=== PATIENT | male | born 1950 | race Caucasian/White ===

== ENCOUNTER → 2023-08-03 | Outpatient (CLI) | payer MEDICARE ==
[2023-08-03 23:14] LABS: BUN/Creat Ratio 20.64 Ratio (12.00-20.00); Blood Urea Nitrogen 22.7 mg/dL (9.0-27.0); Calcium 8.8 mg/dL (8.7-10.3); Carbon Dioxide 21.3 mmol/L (21.6-31.8); Chloride 109 mmol/L (96-109); Glucose 124 mg/dL (70-110); Potassium 4.9 mmol/L (3.5-5.5); Sodium 140 mmol/L (135-145)
== END | disposition home or self-care (01) ==
LOC: LABWHC1 10:03
PROVIDERS: ATTEND Family Medicine
DX: N17.9 Acute kidney failure, unspecified (principal); D64.9 Anemia, unspecified
CPT/HCPCS: 36415; 80048

== ENCOUNTER 2023-10-28 09:47 | Day surgery (SDC) | payer MEDICARE ==
[~2023-10-28 09:47] MED LIST: LACTATED RINGERS 1,000 ML IV SCH
[2023-10-28] MEDS: LACTATED RINGERS 1,000 ML IV ONE (10:32)
[2023-10-28 10:45] VITALS: TEMP 98.6
[2023-10-28] MEDS ORDERED: LIDOCAINE 1% INJ 10MG/ML (20 ML MDV) ONE (12:05)
[2023-10-28] MEDS ORDERED: PROPOFOL 10 MG/ML 20 ML VIAL IV ONE (12:05)
[2023-10-28] MEDS ORDERED: fentaNYL (PF) 50 MCG/ML 2 ML AMP ONE (12:05)
--- NOTE | 2023-10-28 12:08 | P.GSHP ---
History of Present Illness H&P Date: 10/28/23 Chief Complaint: Anemia Is a 73-year-old male who presents today for EGD and screening colonoscopy. Patient's history of anemia. Past Medical History Past Medical History: Atrial Fibrillation, Heart Failure, GERD/Reflux, Hyperlipidemia, Hypertension, Skin Disorder, Vascular Disorder Additional Past Medical History / Comment(s): IRON DEFICIENCY ANEMIA. recent blood transfusion & iron infusion end of September, PERIPHERAL VASCULAR DISEASE. lower back pain, edema lower legs, small area near right ankle-using silver sulfate on it per pt.-juan Shearer-goes to Wound center, legs wrapped daily History of Any Multi-Drug Resistant Organisms: None Reported Additional Past Surgical History / Comment(s): BILATERAL CATARACT SURGERY. 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 right leg angioplasty/stent Past Anesthesia/Blood Transfusion Reactions: No Reported Reaction Smoking Status: Former smoker Medications and Allergies Home Medications Medication Instructions Recorded Confirmed Type Ascorbic Acid [Vitamin C] 1,000 mg PO DAILY 10/08/23 10/28/23 History Aspirin EC [Ecotrin Low Dose] 81 mg PO DAILY 10/08/23 10/28/23 History Atorvastatin Calcium [Lipitor] 40 mg PO DAILY 10/08/23 10/28/23 History Calcium Carbonate/Vitamin D3 1 tab PO DAILY 10/08/23 10/28/23 History [Oyster Shell 250-Vit D3 3.125 Mcg (125 Iu)] Ferrous Sulfate [Iron] 325 mg PO BID 10/08/23 10/28/23 History Furosemide [Lasix] 40 mg PO BID 10/08/23 10/28/23 History Gabapentin [Neurontin] 100 mg PO TID 10/08/23 10/28/23 History HYDROcodone/APAP 7.5-325MG [[place] 1 tab PO Q6H PRN 10/08/23 10/28/23 History 7.5-325] Magnesium Carb,Citrate,Oxide 300 mg PO DAILY 10/08/23 10/28/23 History [Magnesium Complex] Metoprolol Tartrate 125 mg PO BID 10/08/23 10/28/23 History Multivit/Iron Sulf/Folic Acid 1 tab PO DAILY 10/08/23 10/28/23 History [Multivitamin with Iron] Pantoprazole [Protonix] 40 mg PO DAILY 10/08/23 10/28/23 History Sertraline [Zoloft] 25 mg PO DAILY 10/08/23 10/28/23 History Docusate [Colace] 100 mg PO DAILY 10/24/23 10/28/23 History Allergies Allergy/AdvReac Type Severity Reaction Status Date / Time No Known Allergies Allergy Verified 10/28/23 10:36 Surgical - Exam Vital Signs Temp Pulse Resp BP Pulse Ox 98.6 F 78 16 115/68 95 10/28/23 10:39 10/28/23 10:39 10/28/23 10:39 10/28/23 10:39 10/28/23 10:39 - General well developed, well nourished - Eyes PERRL - ENT normal pinna - Neck no masses - Respiratory normal expansion - Cardiovascular Rhythm: regular - Abdomen Abdomen: soft, non tender Assessment and Plan Assessment: Anemia. Will perform EGD screening colonoscopy.
--- NOTE | 2023-10-28 12:33 | P.OP ---
Description of Procedure: Patient was placed on the endoscopy table in the lateral position. The gastroscope was placed in the patient's oropharynx and passed into the esophagus and the stomach. The scope was then placed through the pylorus. The first and second portion of the duodenum appeared normal. Scope was then repacked the antrum this appeared mildly inflamed. The scope was then retroflexed and the Mainer of the stomach appeared normal. The GE junction was at 40 cm. The distal esophagus appeared normal. The proximal esophagus appeared normal. Scope withdrawn the patient. Next digital rectal exam was performed this revealed no abnormalities. The flexible colonoscope was then placed patient anus and passed throughout the colon. Scope could not be placed in the cecum secondary to poor prep. There is a large amount of solid stool in the mid right colon. The scope was withdrawn. The visualized right colon and transverse colon appeared normal. In the descending and sigmoid colon there is mild diverticular changes. The scope was then brought back to the rectum and this appeared normal. Scope was then withdrawn from the patient.
[2023-10-28 13:15] VITALS: BP 149/80; PULSE 88; RESP 16
== END 2023-10-28 13:24 | disposition home or self-care (01) ==
LOC: ORWHC2ENDO 09:47
PROVIDERS: ATTEND Surgery
DX: D50.9 Iron deficiency anemia, unspecified (principal); I11.0 Hypertensive heart disease with heart failure; I50.9 Heart failure, unspecified; I48.91 Unspecified atrial fibrillation; E78.5 Hyperlipidemia, unspecified; K21.9 Gastro-esophageal reflux disease without esophagitis; Z87.891 Personal history of nicotine dependence; Z79.899 Other long term (current) drug therapy
CPT/HCPCS: 88305; 45378; 43239; J2001; J3010; J2704

== ENCOUNTER → 2023-11-26 | Outpatient (CLI) | payer MEDICARE ==
--- NOTE | 2023-11-27 10:17 | CT ---
EXAMINATION TYPE: CT thoracic spine wo con CT DLP: 1090.8 mGycm, Automated exposure control for dose reduction was used. DATE OF EXAM: 11/26/2023 10:31 AM COMPARISON: None. CLINICAL INDICATION:Male, 73 years old with history of M54.6 thoracic pain; PHH, chronic back pain TECHNIQUE: Axial images of the thoracic spine were obtained without contrast. Coronal and sagittal re formats were performed. 3-D reformats of the bones were created on a separate workstation and submitt ed for review. CT DLP: 1090.8 mGycm, Automated exposure control for dose reduction was used. Contrast used: mL of , none Oral contrast used: none FINDINGS: There is erosion of two adjacent vertebral bodies, approximately T9 and T10 endplates. Marked loss of body height at the body designated T9 and mild loss of body height at T10 the process is predominantly lytic Discitis with spondylitis is of concern. If there is a history of cancer, metastasis might also be c onsidered. I do not see any evidence of extradural defects nor significant spinal canal narrowing at any thoraci c vertebral body level. IMPRESSION: Approximately T9-T10: Discitis with spondylitis is of concern. If there is a history of cancer, met astasis might also be considered.
== END | disposition home or self-care (01) ==
LOC: RADCTMAIN 09:38
PROVIDERS: ATTEND Family Medicine
DX: M46.44 Discitis, unspecified, thoracic region (principal)
CPT/HCPCS: 72128

== ENCOUNTER 2023-12-01 09:52 | Inpatient (IN) | payer MEDICARE ==
[2023-12-01] MEDS ORDERED: VANCOMYCIN IV PER PHARMACY 1 EACH MISC MISCELLANE PRN (10:09)
--- NOTE | 2023-12-01 10:13 | ED ---
Back Pain HPI - General Chief Complaint: Back Pain/Injury Stated Complaint: Back Pain Time Seen by Provider: 12/01/23 09:55 Source: patient, EMS, RN notes reviewed Mode of arrival: EMS Limitations: physical limitation - History of Present Illness Initial Comments: This is a 73-year-old male who presents to the emergency department for back pain. States that this is in the mid to lower back. Pain has been present over the last couple of months, but is getting substantially worse over the last few days. He is on [place] 10 mg without relief in symptoms. Denies any fevers/chills. Denies any injuries or loss of bowel/bladder control. He had an outpatient CT scan done 4 days ago, but has not yet gotten the results. MD Complaint: back pain - Related Data Home Medications Medication Instructions Recorded Confirmed Ascorbic Acid [Vitamin C] 1,000 mg PO DAILY 10/08/23 10/28/23 Aspirin EC [Ecotrin Low Dose] 81 mg PO DAILY 10/08/23 10/28/23 Atorvastatin Calcium [Lipitor] 40 mg PO DAILY 10/08/23 10/28/23 Calcium Carbonate/Vitamin D3 1 tab PO DAILY 10/08/23 10/28/23 [Oyster Shell 250-Vit D3 3.125 Mcg (125 Iu)] Ferrous Sulfate [Iron] 325 mg PO BID 10/08/23 10/28/23 Furosemide [Lasix] 40 mg PO BID 10/08/23 10/28/23 Gabapentin [Neurontin] 100 mg PO TID 10/08/23 10/28/23 HYDROcodone/APAP 7.5-325MG [[place] 1 tab PO Q6H PRN 10/08/23 10/28/23 7.5-325] Magnesium Carb,Citrate,Oxide 300 mg PO DAILY 10/08/23 10/28/23 [Magnesium Complex] Metoprolol Tartrate 125 mg PO BID 10/08/23 10/28/23 Multivit/Iron Sulf/Folic Acid 1 tab PO DAILY 10/08/23 10/28/23 [Multivitamin with Iron] Pantoprazole [Protonix] 40 mg PO DAILY 10/08/23 10/28/23 Sertraline [Zoloft] 25 mg PO DAILY 10/08/23 10/28/23 Docusate [Colace] 100 mg PO DAILY 10/24/23 10/28/23 Allergies Allergy/AdvReac Type Severity Reaction Status Date / Time No Known Allergies Allergy Verified 12/01/23 10:09 Review of Systems ROS Statement: Those systems with pertinent positive or pertinent negative responses have been documented in the HPI. ROS Other: All systems not noted in ROS Statement are negative. Past Medical History Past Medical History: Atrial Fibrillation, Heart Failure, GERD/Reflux, Hyperlipidemia, Hypertension, Skin Disorder, Vascular Disorder Additional Past Medical History / Comment(s): IRON DEFICIENCY ANEMIA. recent blood transfusion & iron infusion end september, PERIPHERAL VASCULAR DISEASE. lower back pain, edema lower legs, small area near right ankle-using silver sulfate on it per pt.-sees Manfred-goes to Wound center, legs wrapped daily History of Any Multi-Drug Resistant Organisms: MRSA MDRO Source:: possible MRSA, patient unsure Additional Past Surgical History / Comment(s): BILATERAL CATARACT SURGERY. 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 right leg angioplasty/stent Past Anesthesia/Blood Transfusion Reactions: No Reported Reaction Past Psychological History: No Psychological Hx Reported Smoking Status: Former smoker Past Alcohol Use History: Daily Past Drug Use History: Marijuana General Exam Limitations: physical limitation General appearance: alert, in distress Head exam: Present: atraumatic, normocephalic, normal inspection Respiratory exam: Present: normal lung sounds bilaterally. Absent: respiratory distress, wheezes, rales, rhonchi, stridor Cardiovascular Exam: Present: tachycardia, irregular rhythm GI/Abdominal exam: Present: soft, normal bowel sounds. Absent: distended, tenderness, guarding, rebound, rigid Back exam: Present: tenderness (Lower thoracic/upper lumbar spine) Neurological exam: Present: alert, oriented X3, CN II-XII intact Psychiatric exam: Present: normal affect, normal mood Skin exam: Present: warm, dry, intact, normal color. Absent: rash Course Vital Signs 12/01/23 12/01/23 12/01/23 09:53 11:01 12:31 Temperature 98.3 F Pulse Rate 114 H 130 H 118 H Pulse Rate [ Pulse Oximetery ] Respiratory 20 20 20 Rate Blood Pressure 149/86 136/74 Blood Pressure [Left Arm] O2 Sat by Pulse 93 L 95 95 Oximetry 12/01/23 12/01/23 12/01/23 14:12 14:17 14:59 Temperature Pulse Rate 114 H 106 H 97 Pulse Rate [ Pulse Oximetery ] Respiratory 18 20 Rate Blood Pressure 111/80 137/88 Blood Pressure [Left Arm] O2 Sat by Pulse 94 L 96 Oximetry 12/01/23 12/01/23 15:45 16:15 Temperature 98.3 F 97.8 F Pulse Rate 97 Pulse Rate [ 107 H Pulse Oximetery ] Respiratory 18 17 Rate Blood Pressure 126/77 Blood Pressure 159/80 [Left Arm] O2 Sat by Pulse 94 L 94 L Oximetry Medical Decision Making - Medical Decision Making This is a 73-year-old male who presents to the emergency department for back pain. Was pt. sent in by a medical professional or institution? @ -No Did you speak to anyone other than the patient for history? @ -No Did you review nursing and triage notes? @ -Yes, and I agree, it is accurate with regards to the patient's symptoms. Were old charts reviewed? @ -CT scan of the thoracic spine from 11/27/23 demonstrating erosion of 2 adjacent vertebral bodies, approximately T9 and T10 endplates. There is marked loss of body height at the designated T9 and mild loss of body height at T10. The process is predominantly lytic. Findings concerning for discitis with spondylitis. They also advised consideration of metastasis if the patient has cancer. Differential Diagnosis? @ -Differential Back Pain: Strain, zoster, cauda equina syndrome, epidural abscess, vertebral osteomyelitis, discitis, fracture, subluxation, disc herniation, DJD, spinal stenosis, dissection, AAA, pancreatitis, peptic ulcer disease, pyelonephritis, kidney stone, this is not meant to be an all-inclusive list. EKG interpreted by me (3pts min.)? @ -EKG interpreted by me demonstrating the following: A-fib with RVR. Ventricular rate 122 bpm, QRS duration 97 ms, QTc 403 ms. X-rays interpreted by me (1pt min.)? @ -Not obtained CT interpreted by me (1pt min.)? @ -Not obtained U/S interpreted by me (1pt. min.)? @ -Not obtained What testing was considered but not performed? (CT, X-rays, U/S, labs)? Why? @ -None What meds were considered but not given? Why? @ -None Did you discuss the management of the patient with other professionals? @ -Yes, Dr. Steele, who accepts the patient for admission. Did you reconcile home meds? @ -No Was smoking cessation discussed for >3mins.? @ -No Was critical care preformed (if so, how long)? @ -No Were there social determinants of health that impacted care today? How? (Home lessness, low income, unemployed, alcoholism, drug addiction, transportation, low edu. Level, literacy, decrease access to med. care, senior care, rehab)? @ -No Was there de-escalation of care discussed even if they declined? (Discuss DNR or withdrawal of care, Hospice)? @ -No What co-morbidities impacted this encounter? (DM, HTN, Smoking, COPD, CAD, Ca ncer, CVA, Hep., AIDS, mental health diagnosis, sleep apnea, morbid obesity)? @ -HTN, HLD, A-fib, CHF Was patient admitted / discharged? @ -Admitted. CT scan of the thoracic spine from 11/27/23 was reviewed demonstrating concern for discitis with spondylitis versus metastasis if the patient has cancer. Patient denies any cancer history. Lab work demonstrates leukocytosis with a white blood cell count of 16.3. CRP elevated at 32.5. Given concern for discitis on CT scan from 4 days ago and patient's progressive pain, patient was admitted to medicine for IV antibiotics. Blood cultures obtained. He was started on vancomycin and cefepime. Consult placed for infectious disease and orthopedics. Undiagnosed new problem with uncertain prognosis? @ -None Drug Therapy requiring intensive monitoring for toxicity (Heparin, Nitro, Insulin, Cardizem)? @ -None Were any procedures done? @ -None Diagnosis/symptom? @ -Discitis Acute, or Chronic, or Acute on Chronic? @ -Acute Uncomplicated (without systemic symptoms) or Complicated (systemic symptoms)? @ -Complicated Side effects of treatment? @ -None Exacerbation, Progression, or Severe Exacerbation] @ -Not applicable Poses a threat to life or bodily function? @ -Yes This case was discussed in detail with the attending ED physician, Dr. Lockhart. Presentation, findings, and treatment plan discussed in detail as well. - Lab Data Result diagrams: 12/01/23 10:17 12/01/23 10:17 Lab Results 12/01/23 12/01/23 12/01/23 Range/Units 10:17 10:17 10:17 WBC 16.3 H (3.8-10.6) k/uL RBC 4.32 (4.30-5.90) m/uL Hgb 12.2 L (13.0-17.5) gm/dL Hct 40.2 (39.0-53.0) % MCV 93.0 (80.0-100.0) fL MCH 28.2 (25.0-35.0) pg MCHC 30.3 L (31.0-37.0) g/dL RDW 19.6 H (11.5-15.5) % Plt Count 516 H (150-450) k/uL MPV 7.7 Neutrophils % 94 % Lymphocytes % 2 % Monocytes % 3 % Eosinophils % 0 % Basophils % 0 % Neutrophils # 15.3 H (1.3-7.7) k/uL Lymphocytes # 0.3 L (1.0-4.8) k/uL Monocytes # 0.5 (0-1.0) k/uL Eosinophils # 0.0 (0-0.7) k/uL Basophils # 0.0 (0-0.2) k/uL Hypochromasia Slight Anisocytosis Slight Sodium 136 L (137-145) mmol/L Potassium 3.6 (3.5-5.1) mmol/L Chloride 91 L (98-107) mmol/L Carbon Dioxide 39 H (22-30) mmol/L Anion Gap 6 mmol/L BUN 40 H (9-20) mg/dL Creatinine 0.68 (0.66-1.25) mg/dL Est GFR (CKD-EPI)AfAm >90 (>60 ml/min/1.73 sqM) Est GFR (CKD-EPI)NonAf >90 (>60 ml/min/1.73 sqM) Glucose 148 H (74-99) mg/dL Plasma Lactic Acid Zafar 1.8 (0.7-2.0) mmol/L Calcium 9.2 (8.4-10.2) mg/dL Total Bilirubin 1.3 (0.2-1.3) mg/dL AST 24 (17-59) U/L ALT 43 (4-49) U/L Alkaline Phosphatase 183 H (38-126) U/L C-Reactive Protein 32.5 H (<1.0) mg/dL Total Protein 7.1 (6.3-8.2) g/dL Albumin 3.2 L (3.5-5.0) g/dL - Radiology Data Radiology results: report reviewed, image reviewed Disposition Clinical Impression: Discitis of thoracic region Disposition: ADMITTED IP TO THIS [facility] Time of Disposition: 10:52
[2023-12-01] MEDS: HYDROmorphone 1 MG/ML 1 ML SYRINGE IVP STA ×2 (10:26→10:57)
[2023-12-01] MEDS: KETOROLAC 15 MG/ML 1 ML VIAL IVP STA (10:29)
[2023-12-01] MEDS: SODIUM CHLORIDE 0.9% 1,000 ML IV STA ×2 (10:34→12:24)
[2023-12-01] MEDS: CEFEPIME 2 GM in SODIUM CHLORIDE 0.9% 100 ML IVPB ONE (10:37)
[2023-12-01 10:42] LABS: Anisocytosis Slight; Basophils % (A) 0 %; Eosinophils % (A) 0 %; HCT 40.2 % (39.0-53.0); HGB 12.2 gm/dL (13.0-17.5); Hypochromasia Slight; Lymphocytes # (A) 0.3 k/uL (1.0-4.8); Lymphocytes % (A) 2 %; MCH 28.2 pg (25.0-35.0); MCHC 30.3 g/dL (31.0-37.0); Mean Platelet Volume 7.7; Monocytes # (A) 0.5 k/uL (0-1.0); Monocytes % (A) 3 %; Neutrophils # (A) 15.3 k/uL (1.3-7.7); Neutrophils % (A) 94 %; Platelet Count 516 k/uL (150-450); RBC 4.32 m/uL (4.30-5.90); RDW 19.6 % (11.5-15.5); WBC 16.3 k/uL (3.8-10.6)
[2023-12-01] MEDS ORDERED: ONDANSETRON 4 MG/2 ML VIAL IVP PRN (10:54)
[2023-12-01 11:03] LABS: Potassium 3.6 mmol/L (3.5-5.1)
[2023-12-01 11:06] LABS: ALT 43 U/L (4-49); AST 24 U/L (17-59); African American GFR (CKD) >90 (>60 ml/min/1.73 sqM); Albumin 3.2 g/dL (3.5-5.0); Alkaline Phosphatase 183 U/L (38-126); Anion Gap 6 mmol/L; Blood Urea Nitrogen 40 mg/dL (9-20); Calcium 9.2 mg/dL (8.4-10.2); Carbon Dioxide 39 mmol/L (22-30); Chloride 91 mmol/L (98-107); Glucose 148 mg/dL (74-99); Non-African American GFR(CKD) >90 (>60 ml/min/1.73 sqM); Sodium 136 mmol/L (137-145); Total Bilirubin 1.3 mg/dL (0.2-1.3); Total Protein 7.1 g/dL (6.3-8.2)
[2023-12-01 11:38] LABS: C Reactive Protein 32.5 mg/dL (<1.0)
[2023-12-01] MEDS: HYDROmorphone 0.5 MG/0.5 ML SYRINGE IVP PRN (12:29)
[2023-12-01] MEDS: VANCOMYCIN 1,500 MG in SODIUM CHLORIDE 0.9% 500 ML 500 ML IVPB STA (12:30)
[2023-12-01] MEDS: METOPROLOL TARTRATE 5 MG/5 ML VIAL IVP STA (14:11)
[2023-12-01] MEDS: LIDOCAINE 4% PATCH TOPICAL ONE (14:16)
--- NOTE | 2023-12-01 14:35 | P.HPIM ---
History of Present Illness H&P Date: 12/01/23 History of present illness; Patient is a 73-year-old gentleman with past medical history significant for hyperlipidemia, atrial fibrillation who presented to the ER for worsening back pain. Patient stated that he has been dealing with this back pain for the last few months. Back pain is present in the mid part of the back, states it radiates down his thighs, denies any bowel or urine incontinence. There is no complaint of numbness of his gluteal area, no saddle anesthesia. Patient had outpatient CT scan of the back done which showed T9-T10 discitis. Because of worsening back pain, patient came to the ER Initial lab work done in the ER showed WBC 7.3, hemoglobin 12.2, platelet count 5.6, sodium 136, potassium 3.6, BUN 40, creatinine 0.68 CRP 32.5 Patient admitted to internal medicine service REVIEW OF SYSTEMS: CONSTITUTIONAL: No fever, no malaise, no fatigue. HEENT: No recent visual problems or hearing problems. Denied any sore throat. CARDIOVASCULAR: No chest pain, orthopnea, PND, no palpitations, no syncope. PULMONARY: No shortness of breath, no cough, no hemoptysis. GASTROINTESTINAL: No diarrhea, no nausea, no vomiting, no abdominal pain. NEUROLOGICAL: No headaches, no weakness, no numbness. HEMATOLOGICAL: Denies any bleeding or petechiae. GENITOURINARY: Denies any burning micturition, frequency, or urgency. MUSCULOSKELETAL/RHEUMATOLOGICAL: As mentioned above ENDOCRINE: Denies any polyuria or polydipsia. The rest of the 14-point review of systems is negative. PHYSICAL EXAMINATION: GENERAL: The patient is alert and oriented x3, not in any acute distress. Well developed, well nourished. HEENT: Pupils are round and equally reacting to light. EOMI. No scleral icterus. No conjunctival pallor. Normocephalic, atraumatic. No pharyngeal erythema. No thyromegaly. CARDIOVASCULAR: S1 and S2 present. No murmurs, rubs, or gallops. PULMONARY: Chest is clear to auscultation, no wheezing or crackles. ABDOMEN: Soft, nontender, nondistended, normoactive bowel sounds. No palpable organomegaly. MUSCULOSKELETAL: No joint swelling or deformity. EXTREMITIES: No cyanosis, clubbing, or pedal edema. NEUROLOGICAL: Gross neurological examination did not reveal any focal deficits. SKIN: No rashes. Assessment and plan Acute on chronic back pain T9-10 discitis Hypertension Chronic atrial fibrillation Monitor vital signs Monitor CBC Monitor CMP Continue telemetry monitoring Follow blood cultures Continue IV cefepime vancomycin Continue pain management Orthopedic consulted ID consulted Resume Home meds Labs and medication were reviewed.. Continue same treatment. Continue with symptomatic treatment. Resume home medication. Monitor labs and vitals. DVT and GI prophylaxis. Further recommendations as per clinical course of the patient Dictation was produced using [employer] dictation software. please excuse any grammatical, word or spelling errors. Past Medical History Past Medical History: Atrial Fibrillation, Heart Failure, GERD/Reflux, Hyperlipidemia, Hypertension, Skin Disorder, Vascular Disorder Additional Past Medical History / Comment(s): IRON DEFICIENCY ANEMIA. recent bl ood transfusion & iron infusion end of September, PERIPHERAL VASCULAR DISEASE. lower back pain, edema lower legs, small area near right ankle-using silver sulfate on it per pt.-sees Manfred-goes to Wound center, legs wrapped daily History of Any Multi-Drug Resistant Organisms: MRSA MDRO Source:: possible MRSA, patient unsure Additional Past Surgical History / Comment(s): BILATERAL CATARACT SURGERY. 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 right leg angioplasty/stent Past Anesthesia/Blood Transfusion Reactions: No Reported Reaction Past Psychological History: No Psychological Hx Reported Smoking Status: Former smoker Past Alcohol Use History: Daily Past Drug Use History: Marijuana Medications and Allergies Home Medications Medication Instructions Recorded Confirmed Type Ascorbic Acid [Vitamin C] 1,000 mg PO DAILY 10/08/23 10/28/23 History Aspirin EC [Ecotrin Low Dose] 81 mg PO DAILY 10/08/23 10/28/23 History Atorvastatin Calcium [Lipitor] 40 mg PO DAILY 10/08/23 10/28/23 History Calcium Carbonate/Vitamin D3 1 tab PO DAILY 10/08/23 10/28/23 History [Oyster Shell 250-Vit D3 3.125 Mcg (125 Iu)] Ferrous Sulfate [Iron] 325 mg PO BID 10/08/23 10/28/23 History Furosemide [Lasix] 40 mg PO BID 10/08/23 10/28/23 History Gabapentin [Neurontin] 100 mg PO TID 10/08/23 10/28/23 History HYDROcodone/APAP 7.5-325MG [[place] 1 tab PO Q6H PRN 10/08/23 10/28/23 History 7.5-325] Magnesium Carb,Citrate,Oxide 300 mg PO DAILY 10/08/23 10/28/23 History [Magnesium Complex] Metoprolol Tartrate 125 mg PO BID 10/08/23 10/28/23 History Multivit/Iron Sulf/Folic Acid 1 tab PO DAILY 10/08/23 10/28/23 History [Multivitamin with Iron] Pantoprazole [Protonix] 40 mg PO DAILY 10/08/23 10/28/23 History Sertraline [Zoloft] 25 mg PO DAILY 10/08/23 10/28/23 History Docusate [Colace] 100 mg PO DAILY 10/24/23 10/28/23 History Allergies Allergy/AdvReac Type Severity Reaction Status Date / Time No Known Allergies Allergy Verified 12/01/23 10:09 Physical Exam Vitals: Vital Signs Temp Pulse Resp BP Pulse Ox 12/01/23 14:17 106 H 12/01/23 14:12 114 H 18 111/80 94 L 12/01/23 12:31 118 H 20 136/74 95 12/01/23 11:01 130 H 20 95 12/01/23 09:53 98.3 F 114 H 20 149/86 93 L Intake and Output 11/30/23 12/01/23 12/01/23 22:59 06:59 14:59 Other: Weight 81.647 kg Results CBC & Chem 7: 12/01/23 10:17 12/01/23 10:17 Labs: Abnormal Lab Results - Last 24 Hours (Table) 12/01/23 12/01/23 Range/Units 10:17 10:17 WBC 16.3 H (3.8-10.6) k/uL Hgb 12.2 L (13.0-17.5) gm/dL MCHC 30.3 L (31.0-37.0) g/dL RDW 19.6 H (11.5-15.5) % Plt Count 516 H (150-450) k/uL Neutrophils # 15.3 H (1.3-7.7) k/uL Lymphocytes # 0.3 L (1.0-4.8) k/uL Sodium 136 L (137-145) mmol/L Chloride 91 L (98-107) mmol/L Carbon Dioxide 39 H (22-30) mmol/L BUN 40 H (9-20) mg/dL Glucose 148 H (74-99) mg/dL Alkaline Phosphatase 183 H (38-126) U/L C-Reactive Protein 32.5 H (<1.0) mg/dL Albumin 3.2 L (3.5-5.0) g/dL
[2023-12-01] MEDS: HYDROmorphone 1 MG/ML 1 ML SYRINGE IVP PRN (16:17)
[2023-12-01] MEDS: CEFEPIME 2 GM in SODIUM CHLORIDE 0.9% 100 ML IVPB SCH (17:44)
--- NOTE | 2023-12-01 20:58 | P.CONS ---
History of Present Illness - Reason for Consult Consult date: 12/01/23 - History of Present Illness Patient is a 73-year-old male with a past medical history significant for atrial fibrillation hypertension hyperlipidemia reflux and this patient who did have chronic back pain that has been going on for couple of months patient denies any history of any trauma or any fall patient pain has been progressively getting worse intensity has been almost 10 out of 10 in severity without any radiation and denies any new weakness in the legs or any bowel or bladder problem patient denies any fever or any chills patient did have a CT of the thoracic spine completed. On 11/27/2023 we did report T9-T10 discitis with spinal doses of concern patient has been admitted to hospital he was started on vancomycin and cefepime infectious disease was consulted for further management of antibiotic therapy patient on presentation to the hospital was afebrile patient was tachycardic but not hypotensive or hypoxic patient did have white count of 16.3 with a left shift creatinine 0.68 CRP 32.5 blood culture have been obtained which are currently pending Past Medical History Past Medical History: Atrial Fibrillation, Heart Failure, GERD/Reflux, Hyperlipi demia, Hypertension, Skin Disorder, Vascular Disorder Additional Past Medical History / Comment(s): IRON DEFICIENCY ANEMIA. recent blood transfusion & iron infusion end of September, PERIPHERAL VASCULAR DISEASE. lower back pain, edema lower legs, small area near right ankle-using silver sulfate on it per pt.-juan Shearer-goes to Wound center, legs wrapped daily History of Any Multi-Drug Resistant Organisms: MRSA MDRO Source:: possible MRSA, patient unsure Additional Past Surgical History / Comment(s): BILATERAL CATARACT SURGERY. 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 right leg angioplasty/stent Past Anesthesia/Blood Transfusion Reactions: No Reported Reaction Past Psychological History: No Psychological Hx Reported Smoking Status: Former smoker Past Alcohol Use History: Daily Past Drug Use History: Marijuana Medications and Allergies Home Medications Medication Instructions Recorded Confirmed Type Ascorbic Acid [Vitamin C] 1,000 mg PO DAILY 10/08/23 12/01/23 History Atorvastatin Calcium [Lipitor] 40 mg PO HS 10/08/23 12/01/23 History Calcium Carbonate/Vitamin D3 1 tab PO DAILY 10/08/23 12/01/23 History [Oyster Shell 250-Vit D3 3.125 Mcg (125 Iu)] Ferrous Sulfate [Iron] 325 mg PO DAILY 10/08/23 12/01/23 History Furosemide [Lasix] 40 mg PO BID 10/08/23 12/01/23 History HYDROcodone/APAP 7.5-325MG [[place] 1 tab PO Q6H PRN 10/08/23 12/01/23 History 7.5-325] Magnesium Carb,Citrate,Oxide 300 mg PO DAILY 10/08/23 12/01/23 History [Magnesium Complex] Multivit/Iron Sulf/Folic Acid 1 tab PO DAILY 10/08/23 12/01/23 History [Multivitamin with Iron] Pantoprazole [Protonix] 40 mg PO DAILY 10/08/23 12/01/23 History Sertraline [Zoloft] 25 mg PO HS 10/08/23 12/01/23 History Docusate [Colace] 100 mg PO DAILY@1400 10/24/23 12/01/23 History Apixaban [Eliquis] 5 mg PO BID 12/01/23 12/01/23 History Docusate [Colace] 100 mg PO DAILY PRN 12/01/23 12/01/23 History Gabapentin [Neurontin] 300 mg PO BID 12/01/23 12/01/23 History Metoprolol Tartrate [Lopressor] 50 mg PO BID 12/01/23 12/01/23 History Metoprolol Tartrate [Lopressor] 100 mg PO BID 12/01/23 12/01/23 History Allergies Allergy/AdvReac Type Severity Reaction Status Date / Time No Known Allergies Allergy Verified 12/01/23 18:54 Physical Exam Vitals: Vital Signs Temp Pulse Resp BP Pulse Ox 12/01/23 14:17 106 H 12/01/23 14:12 114 H 18 111/80 94 L 12/01/23 12:31 118 H 20 136/74 95 12/01/23 11:01 130 H 20 95 12/01/23 09:53 98.3 F 114 H 20 149/86 93 L Intake and Output 11/30/23 12/01/23 12/01/23 22:59 06:59 14:59 Other: Weight 81.647 kg Results CBC & Chem 7: 12/01/23 10:17 12/01/23 10:17 Labs: Abnormal Lab Results - Last 24 Hours (Table) 12/01/23 12/01/23 Range/Units 10:17 10:17 WBC 16.3 H (3.8-10.6) k/uL Hgb 12.2 L (13.0-17.5) gm/dL MCHC 30.3 L (31.0-37.0) g/dL RDW 19.6 H (11.5-15.5) % Plt Count 516 H (150-450) k/uL Neutrophils # 15.3 H (1.3-7.7) k/uL Lymphocytes # 0.3 L (1.0-4.8) k/uL Sodium 136 L (137-145) mmol/L Chloride 91 L (98-107) mmol/L Carbon Dioxide 39 H (22-30) mmol/L BUN 40 H (9-20) mg/dL Glucose 148 H (74-99) mg/dL Alkaline Phosphatase 183 H (38-126) U/L C-Reactive Protein 32.5 H (<1.0) mg/dL Albumin 3.2 L (3.5-5.0) g/dL Assessment and Plan Plan: 1patient presented to hospital with worsening mid back pain that has been going on for more than 2 months no history of any trauma he did have abnormal CT that was done on 11/27/2023 suspicious for discitis patient did have a elevated white count and tachycardic meeting criteria for SIRS/sepsis will need to cover for the both gram-positive as well as gram-negative until workup is completed 2-patient benefit from CT surgery evaluation for biopsy versus CT-guided aspirate for the microbiological diagnosis 3-follow-up continue the vancomycin and cefepime while waiting for the workup to be completed Multiple question concern has been answered Will follow on a clinical condition and cultures to further adjust medication if needed Thank you for this consultation will follow this patient along with you Time with Patient: Greater than 30
[2023-12-02] MEDS: VANCOMYCIN 1,500 MG in SODIUM CHLORIDE 0.9% 500 ML 500 ML IVPB SCH (00:30)
[2023-12-02] MEDS: ACETAMINOPHEN TAB 325 MG TAB PO PRN (01:22)
[2023-12-02 04:54] LABS: African American GFR (CKD) >90 (>60 ml/min/1.73 sqM); Non-African American GFR(CKD) >90 (>60 ml/min/1.73 sqM)
[2023-12-02 08:43] LABS: Erythrocyte Sedimentation Rate >130 mm/Hr (0-20)
[2023-12-02] MEDS: GABAPENTIN 300 MG CAP PO SCH (09:37)
--- NOTE | 2023-12-02 11:53 | P.CNOR ---
History of Present Illness - [facility] Consult date: 12/02/23 Consult reason: back pain History of present illness: The patient is seen and examined at bedside. He is a 78-year-old male, he by his son at bedside. Apparently patient having pain over the past 2-3 months at his back. He says the pain is worsening in his mid back and extending out toward his flanks bilaterally. He says he been dealing with it with [id number] medication and vitamins but he has been worsening and had presented to the emergency room. He says he is not having troubles in his lower extremities until this past week. He feels like he is having some weakness in his lower extremities this week. Last week he was able to have further evaluation and was able to get in and out of car on his own to have a computed tomography scan done but now does not feel like getting out of bed on his own. He denies any bowel or bladder incontinence. He says he still voiding adequately. He denies any changes in bowel function. He says he does not have increased pain with coughing or sneezing but he is having worsening pain with movement mobility. He denies any saddle paresthesias or pain at his gluteal area. He says he does not have a history of this. Denies any injury or trauma. He h as a long history of vascular disease and has had amputation his right foot due to this. Review of Systems As stated per HPI. He denies any fevers or chills. Denies any abdominal pain and numbness tingling in his upper extremity is. He denies any changes in bowel bladder function. He says he has global weakness in his bilateral lower extremity is now worse on the right than the left. He has a long history of vascular disease and has had prior amputation his lower extremities on the right lesser toes. He has chronic stasis changes of bilateral lower extremity is. He says normal he is able ambulate on his own as recently as last week. Past Medical History Past Medical History: Atrial Fibrillation, Heart Failure, GERD/Reflux, Hyperlipidemia, Hypertension, Skin Disorder, Vascular Disorder Additional Past Medical History / Comment(s): IRON DEFICIENCY ANEMIA. recent blood transfusion & iron infusion end of September, PERIPHERAL VASCULAR DISEASE. lower back pain, edema lower legs, small area near right ankle-using silver sulfate on it per pt.-sees Manfred-goes to Wound center, legs wrapped daily, history of amputations the right lesser toes due to peripheral vascular disease History of Any Multi-Drug Resistant Organisms: MRSA Year Discovered:: unknown MDRO Source:: possible MRSA, patient unsure Additional Past Surgical History / Comment(s): BILATERAL CATARACT SURGERY. 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 right leg angioplasty/stent Past Anesthesia/Blood Transfusion Reactions: No Reported Reaction Past Psychological History: No Psychological Hx Reported Smoking Status: Former smoker Past Alcohol Use History: Daily Past Drug Use History: Marijuana Medications and Allergies Home Medications Medication Instructions Recorded Confirmed Type Ascorbic Acid [Vitamin C] 1,000 mg PO DAILY 10/08/23 12/01/23 History Atorvastatin Calcium [Lipitor] 40 mg PO HS 10/08/23 12/01/23 History Calcium Carbonate/Vitamin D3 1 tab PO DAILY 10/08/23 12/01/23 History [Oyster Shell 250-Vit D3 3.125 Mcg (125 Iu)] Ferrous Sulfate [Iron] 325 mg PO DAILY 10/08/23 12/01/23 History Furosemide [Lasix] 40 mg PO BID 10/08/23 12/01/23 History HYDROcodone/APAP 7.5-325MG [[place] 1 tab PO Q6H PRN 10/08/23 12/01/23 History 7.5-325] Magnesium Carb,Citrate,Oxide 300 mg PO DAILY 10/08/23 12/01/23 History [Magnesium Complex] Multivit/Iron Sulf/Folic Acid 1 tab PO DAILY 10/08/23 12/01/23 History [Multivitamin with Iron] Pantoprazole [Protonix] 40 mg PO DAILY 10/08/23 12/01/23 History Sertraline [Zoloft] 25 mg PO HS 10/08/23 12/01/23 History Docusate [Colace] 100 mg PO DAILY@1400 10/24/23 12/01/23 History Apixaban [Eliquis] 5 mg PO BID 12/01/23 12/01/23 History Docusate [Colace] 100 mg PO DAILY PRN 12/01/23 12/01/23 History Gabapentin [Neurontin] 300 mg PO BID 12/01/23 12/01/23 History Metoprolol Tartrate [Lopressor] 50 mg PO BID 12/01/23 12/01/23 History Metoprolol Tartrate [Lopressor] 100 mg PO BID 12/01/23 12/01/23 History Allergies Allergy/AdvReac Type Severity Reaction Status Date / Time No Known Allergies Allergy Verified 12/01/23 18:54 Physical Examination Osteopathic Statement: *. No significant issues noted on an osteopathic structural exam other than those noted in the History and Physical/Consult. - L Spine: dermatomal strength & reflexes bilateral Strength: hip flexion: 3/5 (His back is clear. His none tenderness palpation at his back but has pain globally in his back motion. There is no erythema there is no skin breakdown. His lower extremities he has chronic stasis changes from his knees down bilaterally. He has amputation to the lesser 4 toes on the right.) Strength: hip extension: 3/5 (The right hip extensions about 3 out of 5 left is about 3+ out of 5 knee extension his 3 out of 5 on the right and 4-5 on the left. He has sustained 4+ out of 5 dorsi flexion plantarflexion bilaterally) Strength: knee extension: 4/5 (No pain with internal rotation is hips. Abdomen soft. His upper extremities have full active passive range motion. Neck is nontender) Results - Labs Labs: Abnormal Lab Results - Last 24 Hours (Table) 12/01/23 Range/Units 10:17 ESR >130 H (0-20) mm/Hr Microbiology - Last 24 Hours (Table) 12/01/23 10:17 Blood Culture Gram Stain - Preliminary Blood 12/01/23 10:17 Blood Culture Gram Stain - Preliminary Blood H & H 12/01/23 Range/Units 10:17 Hgb 12.2 L (13.0-17.5) gm/dL Hct 40.2 (39.0-53.0) % Result Diagrams: 12/01/23 10:17 12/02/23 04:17 - Diagnostic results CT Scan - lumbar: report reviewed, image reviewed (CT of chest evident pelvis is reviewed. It shows significant changes at T9 10 with erosion into the vertebral bodies. This difficult to discern if there is specific fluid collection or abscess. There is significant spondylosis and lowers lumbar spine ) Assessment and Plan Assessment: Bony erosion T9 10 clinically indicative of discitis Lower extremity weakness bilaterally worse on the right and left Severe peripheral vascular disease with history of amputation is at the right toes and chronic stasis changes bilaterally Plan: Bony erosion T9 10 clinically indicative of discitis Lower extremity weakness bilaterally worse on the right and left Severe peripheral vascular disease with history of amputation is at the right toes and chronic stasis changes bilaterally The patient has significant changes at T9 10 disc space with erosion into the vertebral bodies. The computed tomography scan is stable to determine if there is canal compromise were abscess at the area. I think that we need further imaging with a MRI to better evaluate the disc space and the cord. I discussed this with the patient. The patient says that he will have difficulty going thr ough the MRI due to his pain and we'll try to medicate him today. He can get through and get better information for potential treatment planning. If there is significant abscess or canal compromise that I think that he is a candidate for surgical intervention. He has new weakness and I discussed this with him. With the decompression he may need stabilization as well with hardware fixation. I'll discuss this with him further once the MRI is complete so we can have a probe. Planning for treatment if it involves surgery. The patient should continue his IV antibiotics. This has significant potential of popping with discitis and he is on appropriate regimen per infectious disease. Patient has multiple medical issues including significant peripheral vascular disease and he is at some increased risk with his issues and potential treatment options. I discussed this with him at length. For now is getting continue his IV antibiotics and we'll try to obtain the MRI as soon as possible. We'll make him nothing by mouth for potential surgical intervention based on MRI findings. Time with Patient: Greater than 30
[2023-12-02] MEDS: PANTOPRAZOLE 40 MG/10 ML VIAL IVP SCH (12:11)
[2023-12-02] MEDS: HYDROcodone/APAP 7.5-325MG 1 EACH TAB PO PRN (12:36)
--- NOTE | 2023-12-02 13:51 | P.CONS ---
History of Present Illness - Reason for Consult Consult date: 12/02/23 Suspicious lesions Requesting physician: Gaby Talley - Chief Complaint discitis - History of Present Illness Mr. Rosales is a 73-year-old male patient we have been asked to see because of unusual findings on a CT scan of the thoracic spine, without contrast. Done 11/26/2023, reports an impression of concerns for discitis with spondylitis, if there is a history of cancer metastasis might also be considered. Patient denies any history of cancer, he has approximately a 56-year pack history of smoking quitting July 2023. He states that he is lost about 25 or 30 pounds recently but, not sure if that was related to diuretics he has been on for CHF. His weight is stable now although he does report a decreased appetite. He is limited movement secondary to his back pain. Back pain started several months ago, it has persisted and that is why he has sought medical attention. No fevers, sweats, difficulty swallowing, unusual chest pain or shortness of breath, abdominal pain, acute changes in bowel or bladder habits, no other unusual pain to report. Review of Systems 10 point review of systems is negative except as stated in HPI Past Medical History Past Medical History: Atrial Fibrillation, Heart Failure, GERD/Reflux, Hyperlipidemia, Hypertension, Skin Disorder, Vascular Disorder Additional Past Medical History / Comment(s): IRON DEFICIENCY ANEMIA. recent blood transfusion & iron infusion end of September, PERIPHERAL VASCULAR DISEASE. l ower back pain, edema lower legs, small area near right ankle-using silver sulfate on it per pt.-sees Manfrde-goes to Wound center, legs wrapped daily, history of amputations the right lesser toes due to peripheral vascular disease History of Any Multi-Drug Resistant Organisms: MRSA Year Discovered:: unknown MDRO Source:: possible MRSA, patient unsure Additional Past Surgical History / Comment(s): BILATERAL CATARACT SURGERY. 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 right leg angioplasty/stent Past Anesthesia/Blood Transfusion Reactions: No Reported Reaction Past Psychological History: No Psychological Hx Reported Smoking Status: Former smoker Past Alcohol Use History: Daily Past Drug Use History: Marijuana Medications and Allergies Home Medications Medication Instructions Recorded Confirmed Type Ascorbic Acid [Vitamin C] 1,000 mg PO DAILY 10/08/23 12/01/23 History Atorvastatin Calcium [Lipitor] 40 mg PO HS 10/08/23 12/01/23 History Calcium Carbonate/Vitamin D3 1 tab PO DAILY 10/08/23 12/01/23 History [Oyster Shell 250-Vit D3 3.125 Mcg (125 Iu)] Ferrous Sulfate [Iron] 325 mg PO DAILY 10/08/23 12/01/23 History Furosemide [Lasix] 40 mg PO BID 10/08/23 12/01/23 History HYDROcodone/APAP 7.5-325MG [[place] 1 tab PO Q6H PRN 10/08/23 12/01/23 History 7.5-325] Magnesium Carb,Citrate,Oxide 300 mg PO DAILY 10/08/23 12/01/23 History [Magnesium Complex] Multivit/Iron Sulf/Folic Acid 1 tab PO DAILY 10/08/23 12/01/23 History [Multivitamin with Iron] Pantoprazole [Protonix] 40 mg PO DAILY 10/08/23 12/01/23 History Sertraline [Zoloft] 25 mg PO HS 10/08/23 12/01/23 History Docusate [Colace] 100 mg PO DAILY@1400 10/24/23 12/01/23 History Apixaban [Eliquis] 5 mg PO BID 12/01/23 12/01/23 History Docusate [Colace] 100 mg PO DAILY PRN 12/01/23 12/01/23 History Gabapentin [Neurontin] 300 mg PO BID 12/01/23 12/01/23 History Metoprolol Tartrate [Lopressor] 50 mg PO BID 12/01/23 12/01/23 History Metoprolol Tartrate [Lopressor] 100 mg PO BID 12/01/23 12/01/23 History Allergies Allergy/AdvReac Type Severity Reaction Status Date / Time No Known Allergies Allergy Verified 12/01/23 18:54 Physical Exam Vitals: Vital Signs Temp Pulse Pulse Resp BP BP Pulse Ox 12/02/23 10:17 18 12/02/23 06:55 98.5 F 90 18 159/73 93 L 12/02/23 00:20 99.0 F 117 H 17 160/96 89 L 12/01/23 19:07 98.3 F 96 15 134/71 95 12/01/23 16:15 97.8 F 107 H 17 159/80 94 L 12/01/23 15:45 98.3 F 97 18 126/77 94 L 12/01/23 14:59 97 20 137/88 96 12/01/23 14:17 106 H 12/01/23 14:12 114 H 18 111/80 94 L Intake and Output 12/01/23 12/02/23 12/02/23 22:59 06:59 14:59 Intake Total 1100 Output Total 200 400 Balance 900 -400 Intake: Intake, IV Titration 600 Amount Cefepime 2 gm In Sodium 100 Chloride 0.9% 100 ml @ 25 mls/hr IVPB Q8H [facility] Rx#: [id number] Vancomycin 1,500 mg In 500 Sodium Chloride 0.9% 500 ml 500 ml @ 167 mls/hr IVPB Q12H [facility] Rx#: [id number] Oral 500 Output: Urine 200 400 Other: Voiding Method Urinal Urinal # Voids 1 3 3 Weight 81.647 kg - Constitutional General appearance: average body habitus, cooperative, no acute distress - EENT Eyes: anicteric sclerae, EOMI ENT: hearing grossly normal, normal oropharynx - Neck Neck: no lymphadenopathy - Respiratory Respiratory: bilateral: rales (R>L) - Cardiovascular Rhythm: regular Heart sounds: normal: S1, S2 Abnormal Heart Sounds: no systolic murmur, no diastolic murmur, no rub, no S3 Gallop, no S4 Gallop, no click, no other leg Peripheral Edema: bilateral: None - Gastrointestinal General gastrointestinal: no absent bowel sounds, no decreased bowel sounds, no distended, no hepatomegaly, no hyperactive bowel sounds, normal bowel sounds, no organomegaly, no rigid, no scaphoid, soft, no splenomegaly, no tenderness, no umbilical hernia, no ventral hernia - Integumentary Integumentary: normal - Neurologic Neurologic: CNII-XII intact - Musculoskeletal Musculoskeletal: strength equal bilaterally (But limited range of motion due to pain) - Psychiatric Psychiatric: A&O x's 3, appropriate affect, intact judgment & insight Results CBC & Chem 7: 12/01/23 10:17 12/02/23 04:17 Labs: Abnormal Lab Results - Last 24 Hours (Table) 12/01/23 12/02/23 Range/Units 10:17 04:17 ESR >130 H (0-20) mm/Hr Procalcitonin 0.29 H (0.02-0.09) ng/mL Microbiology - Last 24 Hours (Table) 12/01/23 10:17 Blood Culture Gram Stain - Preliminary Blood 12/01/23 10:17 Blood Culture Gram Stain - Preliminary Blood Comments: CT of the thoracic spine report reviewed Assessment and Plan Plan: Spine lesions, ? if malignant -CT without contrast 11/26/2023, reports erosion of 2 adjacent vertebral bodies, approximately T9 and T10 endplates. Impression reads discitis with spondylitis is of concern and if there is a history of cancer metastasis might also be considered. -Recommend MRI of the T and L-spine for further evaluation of the lesions in question. This is already been ordered by Orthopedic Spine Surgeon. If lesions are suspicious, will order CT CAP to look for a primary. If MRI not consistent with a malignant process, would recommend low-dose screening CT of the chest for patient's extensive smoking history. Doctor attests: I performed a history and physical examination of this patient, developed impression and plan of care. Discussed with dictator. I agree with dictators note, documented as a scribe.
--- NOTE | 2023-12-02 14:01 | P.PN ---
Subjective Progress Note Date: 12/02/23 This is a 73-year-old gentleman past medical history significant for peripheral vascular disease, A-fib, nicotine dependence, neuropathy and multiple other medical issues admitted with chronic back pain, worsening over the last 2 months.denies trauma .denies falls .reports weight loss secondary to no appet ite, exact amount unknown.last bowel movement [address] thoracic spine 11/27/23 reported approximately T9-T10 erosion, possible discitis with spondylitis, possible metastasis, possible infection. On admission afebrile, Tmax 99, tachycardic, WBC 16.3, CRP 32.5, procalcitonin 0.29. Blood cultures in progress. BUN 40, creatinine 0.68. Evaluated by infectious disease with cefepime and vancomycin initiated. Objective - Vital Signs Vital signs: Vital Signs Temp 98.5 F 12/02/23 06:55 Pulse 90 12/02/23 06:55 Resp 18 12/02/23 10:17 BP 159/73 12/02/23 06:55 Pulse Ox 93 L 12/02/23 06:55 FiO2 Intake & Output 12/01/23 12/02/23 12/02/23 18:59 06:59 18:59 Intake Total 1100 Output Total 200 400 Balance 900 -400 Weight 81.647 kg Intake: Intake, IV Titration 600 Amount Cefepime 2 gm In Sodium 100 Chloride 0.9% 100 ml @ 25 mls/hr IVPB Q8H [facility] Rx#: [id number] Vancomycin 1,500 mg In 500 Sodium Chloride 0.9% 500 ml 500 ml @ 167 mls/hr IVPB Q12H [facility] Rx#: [id number] Oral 500 Output: Urine 200 400 Other: Voiding Method Urinal Urinal # Voids 1 3 3 - Exam PHYSICAL EXAM: VITAL SIGNS: [As above] GENERAL: Alert and oriented x 3, sitting up in bed, positive pain HEENT: Normocephalic,conjunctivae normal, eyes normal. NECK: Supple, no JVD. No thyroid enlargement. No LNs CARDIOVASCULAR: S1, S2 regular. No murmur RESPIRATION: Unlabored, equal air entry, breath sounds diminished in the bases. No rhonchi or crackles. No bronchial breathing. ABDOMEN: Soft, nondistended, nontender no guarding. no masses palpable. No ascites, No hepatosplenomegaly.Bowel sounds heard. Right flank to mid back tenderness. LEGS: No edema. no swelling PSYCHIATRY: Alert and oriented X3, mood and affect normal. NERVOUS SYSTEM: Cranial N 2-12 grossly normal. Moves all 4 limbs. No focal deficits. Strength and sensation grossly intact.. Skin: Warm and dry, no rash - Labs CBC & Chem 7: 12/01/23 10:17 12/02/23 04:17 Labs: Abnormal Lab Results - Last 24 Hours (Table) 12/01/23 12/01/23 Range/Units 10:17 10:17 ESR >130 H (0-20) mm/Hr C-Reactive Protein 32.5 H (<1.0) mg/dL Microbiology - Last 24 Hours (Table) 12/01/23 10:17 Blood Culture Gram Stain - Preliminary Blood 12/01/23 10:17 Blood Culture Gram Stain - Preliminary Blood Assessment and Plan Assessment: Sepsis secondary to chronic back pain, worsening, CT thoracic spine 11/27/23reported approximately T9-T10 erosion, possible discitis with spondylitis, possible multiple myeloma, possible infection, blood cultures pending. Neuropathy Peripheral vascular disease Iron deficiency anemia Hypertension Hyperlipidemia Chronic atrial fibrillation Alcohol use Prior nicotine dependence, quit smoking July 2023 Marijuana use Plan: Continue on current medication regimen ,monitoring and symptomatic treatment. Multiple myeloma workup in progress,urine protein electrophoresis ordered. Oncology consulted. MiraLAX ordered for constipation. Pain management .orthopedic spine consult in place. Neurontin resumed for neuropathy. antibiotics as per ID. Close monitoring of renal function with repeat labs ordered for a.m. The impression and plan of care has been dictated as directed. : I performed a history and examination of this patient, discussed the same with the dictator. I agree with the dictator's note ,documented as a scribe. Any additional findings or plans will be noted.
[2023-12-02] MEDS: polyethylene glycoL 3350 17 GM POWD.PACK PO SCH (14:20)
[2023-12-02] MEDS: FUROSEMIDE 40 MG TAB PO SCH (14:20)
[2023-12-02] MEDS: METOPROLOL TARTRATE 50 MG TAB PO SCH ×2 (14:33)
[2023-12-02] MEDS: DOCUSATE 100 MG CAP PO SCH (14:33)
--- NOTE | 2023-12-02 18:06 | P.PN ---
Subjective Progress Note Date: 12/02/23 Principal diagnosis: Reason for follow-up is T9-10 discitis and MRSA bacteremia Patient is a 73-year-old male with a past medical history significant for atrial fibrillation hypertension hyperlipidemia reflux and this patient who did have chronic back pain with a recent outpatient MRI suspicious for discitis involving T910 admitted to hospital with worsening pain and the patient did have a positive blood culture with MRSA. On today's visit that is 12/02/2023,the patient denies any fever or any chills, patient is breathing comfortably on room air, the patient denies chest pain shortness of breath and no significant cough, patient denies abdominal pain, no nausea vomiting or diarrhea. Patient complaining of significant pain to the mid back area no pain to the lower extremity or bowel or bladder problem. Patient did have a creatinine 0.68 ESR is more than 130 CRP of 32.5 blood culture positive for MRSA Objective - Vital Signs Vital signs: Vital Signs Temp 98.5 F 12/02/23 06:55 Pulse 90 12/02/23 06:55 Resp 18 12/02/23 10:17 BP 159/73 12/02/23 06:55 Pulse Ox 93 L 12/02/23 06:55 FiO2 Intake & Output 12/01/23 12/02/23 12/02/23 18:59 06:59 18:59 Intake Total 1100 Output Total 200 400 Balance 900 -400 Weight 81.647 kg Intake: Intake, IV Titration 600 Amount Cefepime 2 gm In Sodium 100 Chloride 0.9% 100 ml @ 25 mls/hr IVPB Q8H [facility]ICENT[facility] Rx#: [id number] Vancomycin 1,500 mg In 500 Sodium Chloride 0.9% 500 ml 500 ml @ 167 mls/hr IVPB Q12H [facility] Rx#: [id number] Oral 500 Output: Urine 200 400 Other: Voiding Method Urinal Urinal # Voids 1 3 3 - Exam GENERAL DESCRIPTION: An elderly male lying in bed in no distress RESPIRATORY SYSTEM: Unlabored breathing , decreased breath sounds at bases HEART: S1 S2 regular rate and rhythm , ABDOMEN: Soft , no tenderness EXTREMITIES: No edema feet - Labs CBC & Chem 7: 12/01/23 10:17 12/02/23 04:17 Labs: Abnormal Lab Results - Last 24 Hours (Table) 12/01/23 Range/Units 10:17 ESR >130 H (0-20) mm/Hr Microbiology - Last 24 Hours (Table) 12/01/23 10:17 Blood Culture Gram Stain - Preliminary Blood 12/01/23 10:17 Blood Culture Gram Stain - Preliminary Blood Assessment and Plan (1) MRSA bacteremia Current Visit: Yes Status: Acute Code(s): R78.81 - BACTEREMIA; B95.62 - METHICILLIN RESIS STAPH INFCT CAUSING DISEASES CLASSD [facility] SNOMED Code(s): 32807756524617701 (2) Discitis of thoracic region Current Visit: Yes Status: Acute Code(s): M46.44 - DISCITIS, UNSPECIFIED, THORACIC REGION SNOMED Code(s): 612291449 Plan: 1patient presented to hospital with worsening mid back pain that has been going on for more than 2 months no history of any trauma he did have abnormal CT that was done on 11/27/2023 suspicious for discitis patient did have a elevated white count and tachycardic meeting criteria for SIRS/sepsis 2-patient clinical course complicated by development of MRSA bacteremia 3 patient has been eval by spine surgery MRI has been ordered and may need surgery on the basis of the MRI report as per discussion with the nursing staff 4-patient will continue vancomycin pharmacy to dose however discontinue cefepime blood cultures to be repeated to document clearance of his bacteremia Son at the bedside questions were answered Thank you for this consultation will follow this patient along with you Time with Patient: Less than 30
[2023-12-02] MEDS: APIXABAN 5 MG TAB PO SCH (21:58)
[2023-12-02] MEDS: SERTRALINE 25 MG TAB PO SCH (21:58)
[2023-12-03 08:28] LABS: Basophils # (A) 0.01 X 10*3/uL (0.00-0.10); Basophils % (A) 0.1 %; Eosinophils # (A) 0.02 X 10*3/uL (0.04-0.35); Eosinophils % (A) 0.1 %; HCT 31.1 % (39.6-50.0); HGB 9.5 g/dL (13.0-17.0); Lymphocytes # (A) 0.37 X 10*3/uL (0.90-5.00); Lymphocytes % (A) 2.4 %; MCH 28.4 pg (27.0-32.0); MCHC 30.5 g/dL (32.0-37.0); MCV 92.8 FL (80.0-97.0); Mean Platelet Volume 10.4 FL (9.5-12.2); Monocytes # (A) 0.49 X 10*3/uL (0.20-1.00); Monocytes % (A) 3.2 %; NRBC Per 100 WBC 0 X 10*3/uL (0.00-0.01); Neutrophils # (A) 14.46 X 10*3/uL (1.80-7.70); Neutrophils % (A) 93.8 %; Platelet Count 340 X 10*3/uL (140-440); RBC 3.35 X 10*6/uL (4.40-5.60); RDW 21.5 % (11.5-14.5); WBC 15.41 X 10*3/uL (4.50-10.00)
[2023-12-03 08:44] LABS: BUN/Creat Ratio 33.57 Ratio (12.00-20.00); Blood Urea Nitrogen 23.5 mg/dL (9.0-27.0); Calcium 8.2 mg/dL (8.7-10.3); Carbon Dioxide 30.7 mmol/L (21.6-31.8); Chloride 100 mmol/L (96-109); Glucose 113 mg/dL (70-110); Potassium 3.2 mmol/L (3.5-5.5); Sodium 141 mmol/L (135-145)
--- NOTE | 2023-12-03 08:55 | P.PN ---
Progress Note - Text Progress Note Date: 12/03/23 Orthopedic spine: History of present illness: Patient is a pleasant 73-year-old male who is seen and examined bedside for follow-up evaluation of his thoracic spine. He is known to have bony erosion changes at T9-10. We were planning for MRI imaging yesterday but due to stent placement in his lower extremities information need to be documented from [facility] in regards to his lower extremity stents. This information has been documented. Patient has been cleared for MRI imaging today. This is scheduled for 12:15 PM. Patient states he continues to have significant back pain and difficulty with his lower extremities. He states his back pain and lower extremity pain with weakness are both equally significant for him. Patient is seen and examined at the bedside by medicine. Patient is also being seen by multiple medical providers including medicine, infectious disease, and hematology/oncology. Patient has been seen by hematology/oncology. They are also awaiting the results of the MRI imaging. Depending on those results, they may plan for CT of the chest abdomen and pelvis for possible primary cancer. If it is negative, they may plan for low-dose CT of the chest for further evaluation given the patient's chronic smoking history. Nursing states patient did receive Eliquis last night. He is still NPO for possible surgical intervention depending on MRI imaging results. He is currently on vancomycin per infectious disease Physical Exam: Patient is awake, alert, and oriented 3 Vital signs stable Good chest excursion with deep inspiration and expiration No signs or symptoms of DVT; no calf pain Significant vascular changes in the bilateral lower extremities Evidence of multiple toe removal on the right lower extremity Patient has significant weakness throughout range of motion of his bilateral lower extremities Significant difficulty lifting his legs off the bed bilaterally Patient is able to perform dorsiflexion and plantarflexion bilaterally Assessment: T9-10 bony erosion; possible discitis Thoracic pain Lower extremity pain Lower extremity weakness Atrial fibrillation Hyperlipidemia Hypertension Vascular disorder History of right toe amputation Iron deficiency anemia Prior nicotine dependence with cessation since July 2023 Plan: 1. Patient does have significant change at T9-10 disc space with bony erosion of the vertebral bodies. We were planning for MRI imaging yesterday but due to stent placement in his lower extremities information need to be documented from [facility] in regards to his lower extremity stents. This information has been documented. Patient has been cleared for MRI imaging today. This is scheduled for 12:15 PM. Currently, patient will be n.p.o. until we are able to review MRI imaging and establish a plan of care proceeding forward including the possibility of surgical intervention . We will plan to reviewed this documentation and imaging of the MRI following its completion today. 2. Patient will continue be seen and examined by multiple medical providers including medicine, infectious disease, and hematology/oncology. 3. Hematology/oncology may be planning for further imaging with either CT of the chest abdomen pelvis or low-dose CT of the chest. 4. He will continue vancomycin per recommendations of infectious disease.
[2023-12-03] MEDS: MAGNESIUM OXIDE 400 MG TAB PO SCH (09:40)
[2023-12-03] MEDS ORDERED: Potassium Replacement Protocol 1 EACH MISC MISCELLANE PRN (09:53)
[2023-12-03] MEDS: POTASSIUM CHLORIDE ER 20 MEQ TAB.ER PO SCH (10:12)
[2023-12-03] MEDS: VANCOMYCIN TROUGH DUE 1 EACH MISC MISCELLANE ONE (12:20)
[2023-12-03] MEDS: NALOXONE 0.4 MG/ML 1 ML VIAL IV PRN (12:26)
[2023-12-03 12:40] LABS: African American GFR (CKD) >90 (>60 ml/min/1.73 sqM); Magnesium 1.8 mg/dL (1.6-2.3); Non-African American GFR(CKD) >90 (>60 ml/min/1.73 sqM)
[2023-12-03] MEDS ORDERED: Magnesium Replacement Protocol 1 EACH MISC MISCELLANE PRN (13:53)
--- NOTE | 2023-12-03 14:06 | P.PN ---
Subjective Progress Note Date: 12/03/23 This is a 73-year-old gentleman past medical history significant for peripheral vascular disease, A-fib, nicotine dependence, neuropathy and multiple other medical issues admitted with chronic back pain, worsening over the last 2 months.denies trauma .denies falls .reports weight loss secondary to no appet ite, exact amount unknown.last bowel movement [address] thoracic spine 11/27/23 reported approximately T9-T10 erosion, possible discitis with spondylitis, possible metastasis, possible infection. On admission afebrile, Tmax 99, tachycardic, WBC 16.3, CRP 32.5, procalcitonin 0.29. Blood cultures in progress. BUN 40, creatinine 0.68. Evaluated by infectious disease with cefepime and vancomycin initiated. 12/03/2023 reports positive pain, controlled better on current Regimen. reports right flank to mid back and bilateral lower extremity pain and weakness.Difficulty Lifting bilateral legs off the bed. Maintained on vancomycin, renal function stable. Preliminary blood cultures reporting gram- positive cocci in clusters x 2. Denies chest pain, palpitations or shortness of breath. Afebrile, WBC 15.4, ESR greater than 130. Hemoglobin 9.5, platelets 340. Potassium 3.2 supplementation ordered. Magnesium level added on. Scheduled for MRI today. Evaluated by oncology, further potential radiology studies depending on MRI results. Renal function stable. Objective - Vital Signs Vital signs: Vital Signs Temp 97.4 F L 12/03/23 07:25 Pulse 101 H 12/03/23 12:37 Resp 2 L 12/03/23 12:26 BP 120/70 12/03/23 12:37 Pulse Ox 100 12/03/23 12:37 FiO2 Intake & Output 12/02/23 12/03/23 12/03/23 18:59 06:59 18:59 Intake Total 200 950 Output Total 600 250 Balance -400 950 -250 Intake: Oral 200 950 Output: Urine 600 250 Other: Voiding Method Urinal Urinal Diaper Incontinent # Voids 3 3 1 - Exam PHYSICAL EXAM: VITAL SIGNS: [As above] GENERAL: Alert and oriented x 3, sitting up in bed, HEENT: Normocephalic,conjunctivae normal, eyes normal. NECK: Supple, no JVD. No thyroid enlargement. No LNs CARDIOVASCULAR: S1, S2 regular. No murmur RESPIRATION: Unlabored, equal air entry, breath sounds diminished in the bases. ABDOMEN: Soft, nondistended, nontender no guarding. no masses palpable. Right flank to mid back tenderness. Positive bowel sounds. LEGS: Chronic peripheral vascular disease, dry, scaly, no edema. no swelling, no calf tenderness. PSYCHIATRY: Alert and oriented X3, mood and affect normal. NERVOUS SYSTEM: Cranial N 2-12 grossly normal. Moves all 4 limbs. No focal deficits. Strength and sensation grossly intact.. Skin: Warm and dry, no rash - Labs CBC & Chem 7: 12/03/23 05:05 12/03/23 11:19 Labs: Abnormal Lab Results - Last 24 Hours (Table) 12/03/23 12/03/23 12/03/23 Range/Units 05:05 05:05 11:19 WBC 15.41 H (4.50-10.00) X 10*3/uL RBC 3.35 L (4.40-5.60) X 10*6/uL Hgb 9.5 L (13.0-17.0) g/dL Hct 31.1 L (39.6-50.0) % MCHC 30.5 L (32.0-37.0) g/dL RDW 21.5 H (11.5-14.5) % Immature Gran # 0.06 H (0.00-0.04) X 10*3/uL Neutrophils # 14.46 H (1.80-7.70) X 10*3/uL Lymphocytes # 0.37 L (0.90-5.00) X 10*3/uL Eosinophils # 0.02 L (0.04-0.35) X 10*3/uL Potassium 3.2 L (3.5-5.5) mmol/L Creatinine 0.56 L (0.66-1.25) mg/dL BUN/Creatinine Ratio 33.57 H (12.00-20.00) Ratio Glucose 113 H (70-110) mg/dL Calcium 8.2 L (8.7-10.3) mg/dL Microbiology - Last 24 Hours (Table) 12/01/23 10:17 Blood Culture Gram Stain - Preliminary Blood Blood Culture - Preliminary Presumptive MRSA 12/01/23 10:17 Blood Culture Gram Stain - Preliminary Blood Assessment and Plan Assessment: Sepsis with presumptive MRSA bacteremia secondary to chronic thoracic pain, worsening, CT thoracic spine 11/27/23reported approximately T9-T10 erosion, possible discitis with spondylitis, possible malignancy Neuropathy Peripheral vascular disease Iron deficiency anemia Hypertension Hyperlipidemia Chronic atrial fibrillation Alcohol use Prior nicotine dependence, quit smoking July 2023 Marijuana use Plan: Continue on current medication regimen ,monitoring and symptomatic treatment. Anticoagulated on Eliquis. MRI of thoracic and lumbar spine ordered as per orthopedic spine. Maintain n.p.o. for potential OR pending MRI results. Continue antibiotics as per ID. Oncology following, recommending potential further workup pending MRI results..Urine protein electrophoresis in progress. Pain management .Close monitoring of renal function with repeat labs ordered for a.m. potassium and magnesium replacement protocols ordered .prognosis guarded given multiple complex medical issues. The impression and plan of care has been dictated as directed. : I performed a history and examination of this patient, discussed the same with the dictator. I agree with the dictator's note ,documented as a scribe. Any additional findings or plans will be noted.
[2023-12-03 16:37] VITALS: RESP 16
[2023-12-03] MEDS ORDERED: VANCOMYCIN 1,250 MG in SODIUM CHLORIDE 0.9% 250 ML IVPB SCH (17:00)
[2023-12-03] MEDS: VANCOMYCIN 1,250 MG in SODIUM CHLORIDE 0.9% 250 ML IVPB SCH (17:11)
--- NOTE | 2023-12-03 17:45 | MR ---
EXAMINATION TYPE: MR thoracic spine wo/w con DATE OF EXAM: 12/03/2023 5:14 PM CLINICAL INDICATION:Male, 73 years old with history of Thoracic discitis, with lower extremity weakne ss; [facility], COMPARISON: CT 11/26/2023. TECHNIQUE: Multi planar, multi sequence imaging was performed utilizing: T1-weighted, short-tau inver parag recovery and T2-weighted of the thoracic spine. IV Contrast: cc (none if empty) FINDINGS: Alignment: Increased kyphotic alignment due to degeneration changes at T11-T12.. Spinal cord: Spinal cord is within normal limits for signal given limitations of exam. Discs: Increased T2 signal at the level of what is thought to be T11-T12. Signal loss/artifact extend s to the region of concern on T1-weighted imaging. T2-weighted imaging the disc space at T11-T12 does demonstrate increased signal. Inversion recovery sequences also demonstrate increased signal at the T11 vertebrae and not really involving T12. There is retropulsion present of up to 5 mm at T11-T12 wi th posterior displacement of the spinal cord. There is at least moderate spinal canal stenosis. There is no significant contrast enhancement of the disc space on postcontrast sequences. Multilevel degeneration changes of spinal osteophyte formation and disc space joint. Degeneration bet ter characterized on CT given poor [id number] ratio on the exam. IMPRESSION: Extremely limited exam with large area of signal loss/artifact extending through the level of concern . Disc space deformities at T11-T12 correlates with CT. There is edema within the joint space on T2-w eighted imaging. T1 weighted imaging is extremely limited. No abnormal postcontrast enhancement seen in the sagittal post gadolinium sequence. There is at least bony edema within the T11 vertebrae possi amelie representing fracture. The T12 vertebrae demonstrate diffuse edema-like T11 vertebrae. Findings f avor at this time compression fracture of T11 giving curvilinear cortical lucency through the vertebr al body on series [address] exam of 11/26/2023. Mild posterior retropulsion and spinal can al stenosis at T11-T12 moderate severity on sagittal imaging.
[2023-12-03 20:19] VITALS: BP 127/69; PULSE 105; TEMP 97.9
[2023-12-04] MEDS ORDERED: VANCOMYCIN 1,250 MG in SODIUM CHLORIDE 0.9% 250 ML IVPB SCH (01:30)
--- NOTE | 2023-12-04 13:08 | P.PN ---
Subjective Progress Note Date: 12/03/23 Principal diagnosis: Reason for follow-up is T9-10 discitis and MRSA bacteremia Patient is a 73-year-old male with a past medical history significant for atrial fibrillation hypertension hyperlipidemia reflux and this patient who did have chronic back pain with a recent outpatient MRI suspicious for discitis involving T910 admitted to hospital with worsening pain and the patient did have a positive blood culture with MRSA. On today's visit that is 12/03/2023,the patient remains to be afebrile, patient is on 2 L nasal cannula supplemental oxygen and earlier did have an episode of extreme anxiety and shortness of breath leading to CODE BLUE called in however the patient never lost his pulse.Patient denies having any nausea or vomiting, no abdominal pain and no diarrhea has been reported. Patient white count is 15.41, creatinine 0.7 and Vanco trough is 24 blood culture repeat pending Objective - Vital Signs Vital signs: Vital Signs Temp 97.4 F L 12/03/23 07:25 Pulse 101 H 12/03/23 12:37 Resp 2 L 12/03/23 12:26 BP 120/70 12/03/23 12:37 Pulse Ox 100 12/03/23 12:37 FiO2 Intake & Output 12/02/23 12/03/23 12/03/23 18:59 06:59 18:59 Intake Total 200 950 Output Total 600 250 Balance -400 950 -250 Intake: Oral 200 950 Output: Urine 600 250 Other: Voiding Method Urinal Urinal Diaper Incontinent # Voids 3 3 1 - Labs CBC & Chem 7: 12/03/23 05:05 12/03/23 11:19 Labs: Abnormal Lab Results - Last 24 Hours (Table) 12/03/23 12/03/23 12/03/23 Range/Units 05:05 05:05 11:19 WBC 15.41 H (4.50-10.00) X 10*3/uL RBC 3.35 L (4.40-5.60) X 10*6/uL Hgb 9.5 L (13.0-17.0) g/dL Hct 31.1 L (39.6-50.0) % MCHC 30.5 L (32.0-37.0) g/dL RDW 21.5 H (11.5-14.5) % Immature Gran # 0.06 H (0.00-0.04) X 10*3/uL Neutrophils # 14.46 H (1.80-7.70) X 10*3/uL Lymphocytes # 0.37 L (0.90-5.00) X 10*3/uL Eosinophils # 0.02 L (0.04-0.35) X 10*3/uL Potassium 3.2 L (3.5-5.5) mmol/L Creatinine 0.56 L (0.66-1.25) mg/dL BUN/Creatinine Ratio 33.57 H (12.00-20.00) Ratio Glucose 113 H (70-110) mg/dL Calcium 8.2 L (8.7-10.3) mg/dL Microbiology - Last 24 Hours (Table) 12/01/23 10:17 Blood Culture Gram Stain - Preliminary Blood Blood Culture - Preliminary Presumptive MRSA 12/01/23 10:17 Blood Culture Gram Stain - Preliminary Blood Assessment and Plan (1) MRSA bacteremia Current Visit: Yes Status: Acute Code(s): R78.81 - BACTEREMIA; B95.62 - METHICILLIN RESIS STAPH INFCT CAUSING DISEASES CLASSD [facility] SNOMED Code(s): 54630314280245081 (2) Discitis of thoracic region Current Visit: Yes Status: Acute Code(s): M46.44 - DISCITIS, UNSPECIFIED, THORACIC REGION SNOMED Code(s): 367790289 Plan: 1patient presented to hospital with worsening mid back pain that has been going on for more than 2 months no history of any trauma he did have abnormal CT that was done on 11/27/2023 suspicious for discitis patient did have a elevated white count and tachycardic meeting criteria for SIRS/sepsis 2-patient clinical course complicated by development of MRSA bacteremia, blood culture has been repeated to document clearance of his bacteremia 3 patient has been eval by spine surgery MRI has been ordered and may need s urgery on the basis of the MRI report as per discussion with the nursing staff 4-patient will continue vancomycin pharmacy to dose however dosing to be adjusted now to keep the trough around 15-20 and will monitor renal function closely Thank you for this consultation will follow this patient along with you
== END 2023-12-03 23:02 | disposition short-term general hospital (02) | DRG 872 ==
LOC: EC 09:52 → 4SSUR 12:06
PROVIDERS: ADMIT Family Medicine; ATTEND Family Medicine
DX: A41.02 Sepsis due to Methicillin resistant Staphylococcus aureus (principal); I48.20 Chronic atrial fibrillation, unspecified; M46.44 Discitis, unspecified, thoracic region; D50.9 Iron deficiency anemia, unspecified; E78.5 Hyperlipidemia, unspecified; F10.20 Alcohol dependence, uncomplicated; G89.29 Other chronic pain; Z79.01 Long term (current) use of anticoagulants; E11.42 Type 2 diabetes mellitus with diabetic polyneuropathy; E11.69 Type 2 diabetes mellitus with other specified complication; E11.51 Type 2 diabetes mellitus with diabetic peripheral angiopathy without gangrene; Z87.891 Personal history of nicotine dependence; M43.04 Spondylolysis, thoracic region; F41.9 Anxiety disorder, unspecified; I11.0 Hypertensive heart disease with heart failure; Z79.82 Long term (current) use of aspirin; Z79.899 Other long term (current) drug therapy; Z89.421 Acquired absence of other right toe(s); Z98.42 Cataract extraction status, left eye; Z98.41 Cataract extraction status, right eye
CPT/HCPCS: 36415; 72157; 80048; 80053; 80202; 82565; 83605; 83735; 84145; 84166; 85025; 85652; 86140; 87040; 87077; 87186; 93005; 96365; 96366; 96367; 96375; 96376; 99285